=== PATIENT | female | born 1945 | race Caucasian/White ===

== ENCOUNTER 2020-07-18 20:25 | Inpatient (IN) | payer OTHER, MEDICAID, SELFPAY ==
[~2020-07-18] VITALS: Ht 157.5 cm; Wt 81.6 kg
[~2020-07-18 20:25] MED LIST: ASPI-1393 PO; CALC-1263 PO; DOCU250C14 PO; IBAN150T21 PO; METO-542; OLAN10TA19 PO; OLAN20TA35 PO; OMEP20CA15 PO; SIMV20TA2 PO; TRIA1CAP6 PO
[2020-07-18 20:26] VITALS: BP_SYST 157
[2020-07-18] MEDS ORDERED: NACL 0.9% 500 ML IV ONE (20:30)
[2020-07-18 21:02] LABS: ANION GAP 10 (5-15); CALCIUM 10.7 mg/dL (8.4-11.0); CHLORIDE 105 mmol/L (98-107); CREATININE 1.16 mg/dL (0.55-1.30); GLUCOSE 102 mg/dL (70-99); POTASSIUM 3.4 mmol/L (3.5-5.1); SODIUM SERUM 143 mmol/L (136-145); UREA NITROGEN, BLOOD 15 mg/dL (8-21)
[2020-07-18 21:08] LABS: ALANINE AMINOTRANSFERASE 20 U/L (12-78); ALBUMIN 3.5 g/dL (3.4-4.8); ASPARTATE AMINOTRANSFERASE 18 U/L (10-37); TOTAL BILIRUBIN 0.5 mg/dL (0.0-1.0)
[2020-07-18 21:11] LABS: ACETAMINOPHEN < 1 ug/mL (1-30)
[2020-07-18 21:12] LABS: ALCOHOL, BLOOD < 3 mg/dL (<10)
[2020-07-18] MEDS ORDERED: NS 500 ML IV ONE (21:15)
[2020-07-18 21:23] LABS: HEMATOCRIT 40.6 % (36-48); HEMOGLOBIN 13.1 g/dL (12.0-16.0); MEAN CORPUSCULAR HEMOGLOBIN 27 pg (27-31); MEAN CORPUSCULAR HGB CONC 32 % (32-36); MEAN CORPUSCULAR VOLUME 85 fL (79.0-98.0); PLATELET COUNT (AUTO) 134 K/uL (130-430); RED CELL DISTRIBUTION WIDTH 15.1 % (9.0-15.0); WHITE BLOOD COUNT (AUTO) 5.5 K/uL (4.8-10.8)
[2020-07-18 21:32] LABS: ATYPICAL LYMPHOCYTES % 2 % (0-0); BAND % (MANUAL) 0 % (0-6); BASOPHILS % (MANUAL) 0 % (0-2); EOSINOPHILS % (MANUAL) 0 % (0-7); LYMPHOCYTES % (MANUAL) 30 % (20-46); MONOCYTES % (MANUAL) 3 % (0-11)
[2020-07-18 22:21] LABS: BILIRUBIN,URINE NEGATIVE (NEGATIVE); BLOOD, URINE NEGATIVE (NEGATIVE); CLARITY/URINE CLEAR (CLEAR); COLOR,URINE YELLOW (YELLOW); GLUCOSE,URINE NEGATIVE (NEGATIVE); KETONES,URINE NEGATIVE (NEGATIVE); LEUKOCYTE ESTERASE ,URINE TRACE (NEGATIVE); NITRITE, URINE NEGATIVE (NEGATIVE); PROTEIN URINE NEGATIVE (NEGATIVE); UROBILINOGEN,URINE 0.2 (0.2-1.0)
[2020-07-18 22:30] LABS: RBC,URINE 0-3 /HPF (0-3); WBC,URINE 0-3 /HPF (0-3)
[2020-07-18 22:31] LABS: BACTERIA,URINE FEW /HPF (None Seen); MUCUS,URINE None Seen /LPF (None Seen)
[2020-07-18 22:34] LABS: BARBITURATE, URINE NEGATIVE (NEG <=200); METHAMPHETAMINES SCREEN,URINE NEGATIVE (NEG <=500); URINE AMPHETAMINE NEGATIVE (NEG <=500); URINE METHADONE NEGATIVE (NEG <=200)
[2020-07-18 22:35] LABS: BENZODIAZEPINE, URINE POSITIVE (NEG <=150); CANNABINOID, URINE NEGATIVE (NEG <=50); COCAINE, URINE NEGATIVE (NEG <=150); OPIATE, URINE NEGATIVE (NEG <=100); PHENCYCLIDINE SCREEN,URINE NEGATIVE (NEG <=25); UR TRICYCLIC ANTIDEPRESSANTS NEGATIVE (NEG <=300); URINE OXYCODONE SCREEN NEGATIVE (NEG <=100); URINE PROPOXYPHENE SCREEN NEGATIVE (NEG <=300)
[2020-07-18] MEDS ORDERED: OLAN15TA6 PO (22:38)
[2020-07-18] MEDS ORDERED: OLAN10VI2 IM (22:38)
[2020-07-18] MEDS ORDERED: TRAZ-250 PO (22:38)
[2020-07-18] MEDS ORDERED: FAMO20TA8 PO (22:38)
[2020-07-18] MEDS ORDERED: LORA-258 PO (22:38)
[2020-07-18] MEDS ORDERED: DONE10TA44 PO (22:38)
[2020-07-18] MEDS ORDERED: LORazepam 2 MG/ML VIAL ONE (23:10)
[2020-07-18] MEDS ORDERED: HALOPERIDOL LACTATE 5 MG/ML VIAL IM ONE (23:15)
[2020-07-18] MEDS ORDERED: LORazepam 2 MG/ML VIAL IVP ONE ×2 (23:15)
[2020-07-18] MEDS ORDERED: LORazepam 1 MG TABLET PO SCH (23:30)
[2020-07-18 23:55] VITALS: BP_SYST 150
[2020-07-19 08:00] VITALS: BP_SYST 153
[2020-07-19] MEDS: PANTOPRAZOLE SODIUM 40 MG TAB PO SCH (08:30)
[2020-07-19] MEDS: FAMOTIDINE 20 MG TABLET PO SCH (08:30)
[2020-07-19] MEDS ORDERED: OLANZapine IntraMuscular 10 MG VIAL (FOR I.M. INJECTION ONLY) IM SCH (09:00)
[2020-07-19] MEDS: METOPROLOL SUCCINATE 50 MG TAB.SR.24H (TOPROL XL) PO SCH (09:19)
[2020-07-19] MEDS: LORazepam 1 MG TABLET PO PRN (11:18)
[2020-07-19 12:00] VITALS: BP_SYST 143
[2020-07-19 15:47] VITALS: BP_SYST 140
[2020-07-19] MEDS ORDERED: IBUPROFEN 800 MG TABLET PO PRN (16:45)
[2020-07-19] MEDS ORDERED: IBUPROFEN 800 MG TABLET ONE (16:57)
[2020-07-19] MEDS: SIMVASTATIN 20 MG TABLET PO SCH (20:34)
[2020-07-19] MEDS: OLANZapine 10 MG TABLET PO SCH (20:34)
[2020-07-19] MEDS: traZODone HCL 50 MG TABLET (DESYREL) PO SCH (20:34)
[2020-07-19 20:58] VITALS: BP_SYST 136
[2020-07-19] MEDS ORDERED: DONEPEZIL HCL 5 MG TABLET (ARICEPT) PO SCH (21:00)
[2020-07-20 00:01] VITALS: BP_SYST 137
[2020-07-20 08:20] VITALS: BP_SYST 145
[2020-07-20] MEDS: FAMOTIDINE 20 MG TABLET PO SCH (08:56)
[2020-07-20] MEDS: PANTOPRAZOLE SODIUM 40 MG TAB PO SCH (08:56)
[2020-07-20] MEDS: METOPROLOL SUCCINATE 50 MG TAB.SR.24H (TOPROL XL) PO SCH (09:50)
[2020-07-20 12:15] VITALS: BP_SYST 168
[2020-07-20] MEDS: HALOPERIDOL LACTATE 5 MG/ML VIAL IM PRN ×2 (12:17→20:23)
[2020-07-20 16:10] VITALS: BP_SYST 147
[2020-07-20 20:03] VITALS: BP_SYST 147
[2020-07-20] MEDS: SIMVASTATIN 20 MG TABLET PO SCH (20:59)
[2020-07-20] MEDS: LORazepam 1 MG TABLET PO PRN (20:59)
[2020-07-20] MEDS: traZODone HCL 50 MG TABLET (DESYREL) PO SCH (20:59)
== END 2020-07-20 21:52 | DRG 948 ==
LOC: SED 20:25 → SMU 23:13
PROVIDERS: ADMIT Family Medicine; ATTEND Family Medicine
DX: R41.82 Altered mental status, unspecified (principal); F03.91 Unspecified dementia, unspecified severity, with behavioral disturbance; Z20.822 Contact with and (suspected) exposure to COVID-19; I10 Essential (primary) hypertension; E78.5 Hyperlipidemia, unspecified; F29 Unspecified psychosis not due to a substance or known physiological condition
CPT/HCPCS: 36415; 80053; 80307; 81000-TC; 85007; 85027; 87081; 93005; 96374; G0480; G0481; G0482; J1630; J2060; J3490